=== PATIENT | male | born 1970 | race Caucasian/White ===

== ENCOUNTER 2020-03-28 10:19 | Emergency (ER) | payer OTHER ==
[2020-03-28] MEDS ORDERED: Ondansetron 4 MG/2 ML SDV IVPUSH ONE (11:01)
[2020-03-28] MEDS ORDERED: Sodium Chloride 0.9% 10 ML Syringe FLUSH PRN (11:01)
[2020-03-28] MEDS ORDERED: Sodium Chloride 0.9% 1,000 ML IV SCH (11:15)
--- NOTE | 2020-03-28 11:36 | CT ---
Head CT Technique: Multiple axial sections through the brain were obtained. Intravenous contrast was not utilized. Comparison: No previous intracranial imaging is available. Findings: Ventricles along with basal cisterns and sulci over the convexities are within normal limits for the patient's age. No abnormal parenchymal densities are seen. No evidence of intracranial hemorrhage. No midline shift or mass-effect is seen. No retrobulbar abnormality is appreciated. Right and left globes that are seen appear symmetric in size. Bone window settings were reviewed. Visualized mastoid sinuses are clear. Mild mucosal thickening seen within the frontal and ethmoid sinuses. Retention cyst noted within the left side of the sphenoid sinus measuring 1.5 cm. No acute calvarial finding is appreciated. Impression: 1. Sinus findings which are most likely chronic. 2. No acute intracranial abnormality is appreciated. Diagnostic code #2 This report was dictated in MDT
--- NOTE | 2020-03-28 12:29 | EDM.PDOC ---
ED HPI GENERAL MEDICAL PROBLEM - General Chief Complaint: Neurological Problem Stated Complaint: BLURRY L EYE/NAUSEA/DIZZY Time Seen by Provider: 03/28/20 10:36 Source of Information: Reports: Patient History Limitations: Reports: No Limitations - History of Present Illness INITIAL COMMENTS - FREE TEXT/NARRATIVE: The patient presents with left eye blurriness, dizziness and nausea. The blurred vision in his left eye has been going on for about a month. In the morning it is the worst and it goes away after few hours. He has no headache, fever, chills, cough, congestion, runny nose, chest pain or shortness of breath. He does have some dizziness with nausea. He has tried zofran and that helps for a short time. He says this has been going on for a couple of days. He has no numbness or weakness. Onset: Gradual Duration: Week(s): Severity: Mild Improves with: Reports: None Worsens with: Reports: None Associated Symptoms: Reports: Nausea/Vomiting. Denies: Chest Pain, Cough, Fever/Chills, Headaches, Shortness of Breath - Related Data Allergies Allergy/AdvReac Type Severity Reaction Status Date / Time No Known Allergies Allergy Verified 03/28/20 10:34 Home Meds: Home Meds Sertraline [Zoloft] 100 mg PO DAILY 06/28/15 [History] Glucosamine [Glucosamine Sulfate] 500 mg PO DAILY 03/28/20 [History] Meclizine [Antivert] 25 mg PO Q6H PRN #20 tab 03/28/20 [Rx] Ondansetron [Zofran ODT] 4 mg PO Q6H PRN #20 tab.dis 03/28/20 [Rx] Past Medical History - Past Health History Medical/Surgical History: Denies Medical/Surgical History HEENT History: Reports: Hard of Hearing Psychiatric History: Reports: Depression - Infectious Disease History Infectious Disease History: Reports: None - Past Surgical History GI Surgical History: Reports: Colonoscopy Male Surgical History: Reports: Vasectomy Social & Family History - Tobacco Use Smoking Status *Q: Current Every Day Smoker Years of Tobacco use: 30 Packs/Tins Daily: 0.5 - Caffeine Use Caffeine Use: Reports: None - Recreational Drug Use Recreational Drug Use: No ED ROS GENERAL - Review of Systems Review Of Systems: See Below Constitutional: Reports: No Symptoms HEENT: Reports: No Symptoms Respiratory: Reports: No Symptoms Cardiovascular: Reports: No Symptoms Endocrine: Reports: No Symptoms GI/Abdominal: Reports: Nausea. Denies: Abdominal Pain, Vomiting Neurological: Reports: Dizziness. Denies: Headache, Numbness, Weakness ED EXAM, NEURO - Physical Exam Exam: See Below Exam Limited By: No Limitations General Appearance: Alert, No Apparent Distress Eye Exam: Bilateral Eye: EOMI, Normal Fundi, PERRL Ears: Normal External Exam Nose: Normal Inspection Head Exam: Atraumatic, Normocephalic Neck: Normal Inspection, Supple, Non-Tender Respiratory/Chest: No Respiratory Distress, Lungs Clear, Normal Breath Sounds Cardiovascular: Regular Rate, Rhythm, No Edema, No Murmur GI/Abdominal: Soft, Non-Tender, No Organomegaly, No Mass Neurological: No Motor/Sensory Deficits, Oriented x 3 Course - Vital Signs Last Recorded V/S: Last Vital Signs Temp 97 F 03/28/20 10:31 Pulse 57 L 03/28/20 10:31 Resp 16 03/28/20 10:31 BP 133/82 03/28/20 10:31 Pulse Ox 97 03/28/20 10:31 - Orders/Labs/Meds Orders: Active Orders 24 hr Category Date Time Status Cardiac Monitoring [RC] . DIRECTED Care 03/28/20 11:01 Active Peripheral IV Care [RC] . DIRECTED Care 03/28/20 11:01 Active CORONAVIRUS COVID-19 PCR PH[facility] Stat Lab 03/28/20 12:43 Ordered Sodium Chloride 0.9% [Normal Saline] 1,000 ml Med 03/28/20 11:15 Active IV .BOLUS Sodium Chloride 0.9% [Saline Flush] Med 03/28/20 11:01 Active 10 ml FLUSH ASDIRECTED PRN ED Antiemetic Medication Reflex [OM.PC] Stat Oth 03/28/20 11:01 Ordered Peripheral IV Insertion Adult [OM.PC] Stat Oth 03/28/20 11:01 Ordered Medication Orders Sodium Chloride (Normal Saline) 1,000 mls @ 1,000 mls/hr IV .BOLUS JOHN PAUL Last Admin: 03/28/20 11:19 Dose: 1,000 mls/hr Documented by: WILL Sodium Chloride (Saline Flush) 10 ml FLUSH ASDIRECTED PRN PRN Reason: Keep Vein Open Last Admin: 03/28/20 11:18 Dose: 10 ml Documented by: WILL Labs: Laboratory Tests 03/28/20 03/28/20 03/28/20 Range/Units 11:10 11:15 11:15 WBC 5.07 (4.23-9.07) K/mm3 RBC 4.78 (4.63-6.08) M/mm3 Hgb 14.4 (13.7-17.5) gm/dl Hct 43.7 (40.1-51.0) % MCV 91.4 (79.0-92.2) fl MCH 30.1 (25.7-32.2) pg MCHC 33.0 (32.2-35.5) g/dl RDW Std Deviation 45.4 H (35.1-43.9) fL Plt Count 183 (163-337) K/mm3 MPV 10.0 (9.4-12.3) fl Neut % (Auto) 46.7 (34.0-67.9) % Lymph % (Auto) 40.6 (21.8-53.1) % [place] % (Auto) 9.3 (5.3-12.2) % Eos % (Auto) 3.0 (0.8-7.0) Baso % (Auto) 0.4 (0.1-1.2) % Neut # (Auto) 2.37 (1.78-5.38) K/mm3 Lymph # (Auto) 2.06 (1.32-3.57) K/mm3 [place] # (Auto) 0.47 (0.30-0.82) K/mm3 Eos # (Auto) 0.15 (0.04-0.54) K/mm3 Baso # (Auto) 0.02 (0.01-0.08) K/mm3 Sodium 140 (136-145) mEq/L Potassium 4.3 (3.5-5.1) mEq/L Chloride 103 (98-107) mEq/L Carbon Dioxide 29 (21-32) mEq/L Anion Gap 12.3 (5-15) BUN 14 (7-18) mg/dL Creatinine 0.9 (0.7-1.3) mg/dL Est Cr Clr Drug Dosing 109.48 mL/min Estimated GFR (MDRD) > 60 (>60) mL/min BUN/Creatinine Ratio 15.6 (14-18) Glucose 108 H (74-106) mg/dL Calcium 8.8 (8.5-10.1) mg/dL Magnesium 2.2 (1.8-2.4) mg/dl Total Bilirubin 0.4 (0.2-1.0) mg/dL AST 16 (15-37) U/L ALT 27 (16-63) U/L Alkaline Phosphatase 55 (46-116) U/L Total Protein 7.6 (6.4-8.2) g/dl Albumin 3.9 (3.4-5.0) g/dl Globulin 3.7 gm/dL Albumin/Globulin Ratio 1.1 (1-2) Urine Color Yellow (Yellow) Urine Appearance Clear (Clear) Urine pH 7.5 (5.0-8.0) Ur Specific [place] 1.020 (1.005-1.030) Urine Protein Negative (Negative) Urine Glucose (UA) Negative (Negative) Urine Ketones Negative (Negative) Urine Occult Blood Negative (Negative) Urine Nitrite Negative (Negative) Urine Bilirubin Negative (Negative) Urine Urobilinogen 0.2 (0.2-1.0) Ur Leukocyte Esterase Negative (Negative) Urine RBC Not seen (0-5) /hpf Urine WBC Not seen (0-5) /hpf Ur Epithelial Cells Not seen (0-5) /hpf Urine Bacteria Not seen (FEW) /hpf Urine Mucus Not seen (FEW) /hpf Meds: Medications Generic Name Dose Route Start Last Admin Trade Name Freq PRN Reason Stop Dose Admin Sodium Chloride 1,000 mls @ 1,000 mls/hr 03/28/20 11:15 03/28/20 11:19 Normal Saline IV 1,000 mls/hr .BOLUS JOHN PAUL Administration Sodium Chloride 10 ml 03/28/20 11:01 03/28/20 11:18 Saline Flush FLUSH 10 ml ASDIRECTED PRN Administration Keep Vein Open Discontinued Medications Generic Name Dose Route Start Last Admin Trade Name Freq PRN Reason Stop Dose Admin Ondansetron HCl 4 mg 03/28/20 11:01 03/28/20 11:18 Zofran IVPUSH 03/28/20 11:02 4 mg ONETIME ONE Administration - Re-Assessments/Exams Free Text/Narrative Re-Assessment/Exam: 03/28/20 12:29 I ordered an IV NS 1L bolus, zofran 4mg IV, labs, and a CT of his head. The CT of his head looks good. 03/28/20 12:30 His CBC and CMP look good. 03/28/20 12:43 He is saying he had some diarrhea the past couple of days. I will get a COVID 19 test. He is seeing his tax manager soon. I will give him some antivert for the dizziness and some zofran for the nausea. Departure - Departure Time of Disposition: 12:45 Disposition: Home, Self-Care 01 Condition: Good Clinical Impression: Blurred vision, left eye, Dizziness, Nausea - Discharge Information Prescriptions: Meclizine [Antivert] 25 mg PO Q6H PRN #20 tab PRN Reason: Dizziness Ondansetron [Zofran ODT] 4 mg PO Q6H PRN #20 tab.dis PRN Reason: Nausea\vomiting Referrals: Maki Sharp PA-C [Primary Care Provider] - 1 Week Forms: ED Department Discharge Additional Instructions: Drink plenty of fluids. Take zofran as needed for nausea. Take the antivert as needed for dizziness. Follow up with your tax manager. Follow up with your doctor. Please return if you are worse. Sepsis Event Note (ED) - Evaluation Sepsis Screening Result: No Definite Risk - Focused Exam Vital Signs: Vital Signs Temp Pulse Resp BP Pulse Ox 03/28/20 10:31 97 F 57 L 16 133/82 97 - My Orders Last 24 Hours: My Active Orders 03/28/20 11:01 Cardiac Monitoring [RC] . DIRECTED Peripheral IV Care [RC] . DIRECTED Sodium Chloride 0.9% [Saline Flush] 10 ml FLUSH ASDIRECTED PRN ED Antiemetic Medication Reflex [OM.PC] Stat Peripheral IV Insertion Adult [OM.PC] Stat 03/28/20 11:15 Sodium Chloride 0.9% [Normal Saline] 1,000 ml IV .BOLUS 03/28/20 12:43 CORONAVIRUS COVID-19 PCR PHL Stat - Assessment/Plan Last 24 Hours: My Active Orders 03/28/20 11:01 Cardiac Monitoring [RC] . DIRECTED Peripheral IV Care [RC] . DIRECTED Sodium Chloride 0.9% [Saline Flush] 10 ml FLUSH ASDIRECTED PRN ED Antiemetic Medication Reflex [OM.PC] Stat Peripheral IV Insertion Adult [OM.PC] Stat 03/28/20 11:15 Sodium Chloride 0.9% [Normal Saline] 1,000 ml IV .BOLUS 03/28/20 12:43 CORONAVIRUS COVID-19 PCR PHL Stat
[2020-03-28 13:24] VITALS: BP 143/79; PULSE 60
== END 2020-03-28 13:15 | disposition home or self-care (01) ==
LOC: JD.ED 10:19
DX: H53.8 Other visual disturbances (principal); R42 Dizziness and giddiness; R11.0 Nausea; F32.9 Major depressive disorder, single episode, unspecified; F17.210 Nicotine dependence, cigarettes, uncomplicated; Z79.899 Other long term (current) drug therapy; Z20.828 Contact with and (suspected) exposure to other viral communicable diseases
CPT/HCPCS: 36415; 70450; 80053; 81001; 83735; 85025; 87635; 96361; 96374; 99284; J2405; J7030; U0002